=== PATIENT | female | born 1935 | race Caucasian/White ===

== ENCOUNTER → 2019-02-11 | Outpatient (CLI) | payer MEDICARE, OTHER ==
--- NOTE | 2019-02-11 13:26 | RADIOLOGY REPORT (SQ) ---
EXAM DESCRIPTION: BARIUM SWALLOW ESOPHAGUS COMPLETED DATE/TIME: 02/11/2019 9:25 am REASON FOR STUDY: R13.10 DYSPHAGIA, UNSPECIFIED R13.10 DYSPHAGIA, UNSPECIFIED COMPARISON: None. TECHNIQUE: Under fluoroscopic guidance, patient ingested effervescent granules followed by thick and thin barium. Fluoroscopic spot images and routine radiographic images acquired and stored on PACS. 12 MM BARIUM TABLET GIVEN: 12 mm barium tablet passed easily through the esophagus and into the stoma ch without delay. LIMITATIONS: None. FLUOROSCOPY TIME: FLUORO TIME: 2.4 minutes 8 images saved to PACS. FINDINGS: NEUROMUSCULAR COORDINATION OF SWALLOW: Normal. No aspiration. ESOPHAGEAL MOTILITY: Normal peristalsis. No esophageal spasm. ESOPHAGEAL MUCOSA: Normal mucosa without masses or ulceration. GASTRO-ESOPHAGEAL JUNCTION: Tiny hiatal hernia. No reflux. NON-GI TRACT STRUCTURES: No significant finding. OTHER: No other significant finding. IMPRESSION: TINY HIATAL HERNIA. OTHERWISE UNREMARKABLE STUDY. RECOMMENDATION: None COMMENT: None Quality ID 145: Final reports for procedures using fluoroscopy that document radiation exposure gloria mayra, or exposure time and number of fluorographic images (if radiation exposure indices are not avail able) TECHNICAL DOCUMENTATION: JOB ID: [id number] [employer]- All Rights Reserved Reading location - IP/workstation name: [email or web address] [id number]
== END ==
LOC: RAD 08:40
PROVIDERS: ATTEND Internal Medicine Gastroenterology
DX: K44.9 Diaphragmatic hernia without obstruction or gangrene (principal); R13.10 Dysphagia, unspecified
CPT/HCPCS: 74220

== ENCOUNTER → 2019-05-15 | Outpatient (CLI) | payer MEDICARE, OTHER ==
--- NOTE | 2019-05-15 09:26 | RADIOLOGY REPORT (SQ) ---
EXAM DESCRIPTION: AHSAN SWALLOW COMPLETED DATE/TIME: 05/15/2019 8:59 am REASON FOR STUDY: DYSPHAGIA, UNSPECIFIED R13.10 DYSPHAGIA, UNSPECIFIED COMPARISON: None. TECHNIQUE: Videofluoroscopic swallowing examination was performed in conjunction with speech patholo gy. Videofluoroscopic imaging was obtained and reviewed and these are the findings: RADIATION DOSE: Fluoro time 2.29 minutes 2 images saved to PACS. LIMITATIONS: None FINDINGS: The patient was brought into the fluoro room and placed upright on a modified barium swall ow chair. The patient was then given multiple consistencies mixed with barium to swallow under live fluoroscopic video guidance. According to the Speech Pathologist there was no penetration or aspirat ion. Please refer to the speech pathology report for further details. IMPRESSION: NO EVIDENCE OF PENETRATION OR ASPIRATION. PLEASE SEE SPEECH PATHOLOGIST REPORT FOR OTHER FINDINGS AND RECOMMENDATIONS. COMMENT: None Quality ID 145: Final reports for procedures using fluoroscopy that document radiation exposure gloria mayra, or exposure time and number of fluorographic images (if radiation exposure indices are not avail able) TECHNICAL DOCUMENTATION: JOB ID: [id number] [employer]- All Rights Reserved Reading location - IP/workstation name: [email or web address] [id number]
--- NOTE | 2019-05-16 09:32 | ST Modified Barium Swallow ---
Recommendation - Recommendations Recommendations: Follow up with GI regarding globus sensation with solids Medical Diagnoses - Medical Diagnoses Medical Diagnosis Description & ICD-10 Code(s): R13.10 Other Medical Diagnoses/Co-Morbidities: hx of gastroesophageal reflux disease, swallowing problems - ICD-10 Tx Diagnosis Coding (1) Dysphagia, unspecified ICD-10 Code(s): R13.10 - DYSPHAGIA, UNSPECIFIED ST Modified Barium Swallow - General Date: 05/15/19 Risks/Precautions: Aspiration - general aspiration precautions Reason for Referral: having swallowing difficulty for 2-3 months - History History obtained from: Other - History obtained from outpatient history from clinical evaluation completed on 05/07/19 Patient reports she has been having swallowing difficulty for 2-3 months. Patient reports an episode of having food stick in her throat at that time (hamburger), and has noticed continuous issues since that time. Reports that she "fills up" when eating, tries liquid wash, but this does not seem to resolve her issue. Patient had a barium swallow completed at this hospital in January, that test reports no reflux was seen, "tiny hiatal hernia". Has a history of esophageal dilation, most recently with Dr. Trevizo approximately 1 month ago. This reportedly did not improve symptoms. No recent pneumonia or bronchitis. Medications: synthroid, pantoprazole, traradol, norvasc, praluent Allergies: morphine codeine, septra - Functional Status Prior Functional Status: INDEPENDENT: feeding - independent - Subjective Patient/caregiver goal(s): safe swallow, r/o aspiration Cognitive-Linguistic Function: WNL Speech Intelligibility: WNL Current Nutritional Means: PO Current PO diet: Regular Current symptoms: c/o Globus sensation, other - choking Pain: Patient reports, 0/5, denies pain - Objective Assessment: Upright - Food Trials Used Food trials used: Thin liquids, Pureed, Regular The patient: Was Able to Self Feed, via cup - Oral-Motor Skills Velo-pharyngeal function: Not assessed Laryngeal Function: Volitional Cough, Volitional Swallow - Assessment Oral prep: Normal Labial closure: Adequate Leakage: None Mastication: Adequate Lingual Movement: Normal Oral stage: Age appropriate Oral Stage: patient demonstrated functional manipulation, bolus cohesion, and propulsion. - Pharyngeal Stage Initiation of Pharyngeal Stage Reflex: Normal Decreased laryngeal elevation: No Reduced Velopharyngeal Closure: no Reduced pressure generation: No reduced tongue-based retraction: No Pre-swallow pooling in valleculae: None Pre-Swallow pooling in pyriforms: None Reduced Thyro-Hyoid approximation: No Reduced epiglottic excursion: No Reduced pharyngeal peristalsis/contraction: No Post-swallow residulas vallecular: Mild - with solids Reduced Cricopharyngeal opening: No Pharyngeal Stage Comments: No aspiration/penetration observed despite challenging with consecutive large sips of thin liquid and larger bites of regular solids. Timely initiation of pharyngeal swallow, tongue base retraction, pharyngeal constriction, and UES opening for trials tested. Mild residual with solids, not impacting subsequent swallows. - Esophageal Stage Cricopharyngeal Function: Normal Upper Esophageal Transit: Impaired - slowed Esophageal stasis/dysmotility: Yes - with soilds Cervical Osteophytes noted: No Esophageal Stage: Given suspected esophageal component to swallowing difficulty (globus sensation and slowed transit upon entrance to esophagus) recommended that patient follow u p with GI or primary care to address concerns with solids specifically - Fall Risk Assessment Medications/Conditions that increase fall risks include: Antidepressants, sedatives, anti-arrhythmic, diuretic, benzodiazipenes, neuroleptics. BP regulation problems, cardiac problems, balance or gait deficits, neurological problems. Is patient considered at risk for falls: age appropriate Fall Risk Actions Taken: No action needed - Behavioral Observations During evaluation process patient: was pleasant, was cooperative - Treatment / Educational Needs: Treatment/Education Needs: Treatment consisted of patient education on the role of the Speech Pathologist. Patient's plan of care and golas were communicated as well as scheduling and attendance policies. Recommendations for initial home program were shared. Patient demonstrated understanding and verbalized agreement. - Impression/Summary Laryngeal Penetration: No Tracheal Aspiration: no Patient presents with: Esophageal stage dysph. - suspected Risk of Aspiration: Mild - Recommendations NPO: no Solid diet recommendations: Regular Liquid Diet Modification: Thin Pt/Family education and followup with MD: Yes Dysphagia therapy with MOLDER FOAM RUBBER: no Reflux Precautions: Taught to Patient, Taught to Family Recommended techniques: Fully Upright During Meal, Small Bites and Sips, Alternate Bites/Sips Information, Precautions and Recommendations: Patient (Written), Patient (Verbal) - Educated patient and patient's family about reflux precauitons, protection of airway observed during evaluation and no observed difficulty noted with oropharyngeal swallow. Paitent contines to report globus sensation and food getting stuck. Patient's reports that he "will just have to learn the heimlich maneuver." Patient likely to benefit from further evaluation from GI or primary care for further education for patient and patient's . - Plan of Care Strategies to optimize patient understanding include:: ongoing assessment of educational needs, implementation of educational strategies, and re-education. - - -: Thank you for the opportunity to work with this patient and his/her family. Should you have any questions about this patient's plan or progress, I can be reached at [phone].
== END ==
LOC: RAD 08:17
PROVIDERS: ATTEND Internal Medicine Gastroenterology
DX: R13.10 Dysphagia, unspecified (principal)
CPT/HCPCS: 74230